=== PATIENT | female | born 1995 | race Caucasian/White ===

== ENCOUNTER 2019-02-03 16:31 | Outpatient (CLI) | payer OTHER ==
--- NOTE | 2019-02-03 17:42 | Ultrasound Report ---
Reason: UTERINE SIZE-DATE DISCREPANCY Procedure Date: 02/03/2019 Accession Number: [id number] / [id number] Procedure: US - OB F/U or Repeat CPT Code: Final Report FULL RESULT: EXAM: FOLLOW-UP OBSTETRICAL ULTRASOUND EXAM DATE: 02/03/2019 04:38 PM. CLINICAL HISTORY: UTERINE SIZE-DATE DISCREPANCY. COMPARISON: No priors are available. TECHNIQUE: Real-time sonographic evaluation of the fetus performed by the payroll accounting specialist. Multiple technical service representative static images were saved for review. DATING: Established EGA 35 weeks 5 days with VIDA 03/05/2019 based on LMP of 05/29/2018 per patient's report. EGA 35 weeks 5 days with VIDA 03/05/2019 based on physician stated date. EGA 37 weeks 4 days with VIDA 02/20/2019 based on the current ultrasound. GENERAL EVALUATION Cardenas . Cardiac activity: 151 bpm. movement: Visualized. Presentation: Cephalic. Placenta: Anterior position. Amniotic fluid: Normal. NATE 16 cm. MVP 4.9 cm. BIOMETRY Bi-Parietal Diameter (BPD): 8.9 cm, 36 weeks 1 day Head Circumference (HC): 34.5 cm, 39 weeks 2 days Abdominal Circumference (AC): 35 cm, 39 weeks 0 days Femur Length (FL): 6.9 cm, 35 weeks 4 days Estimated Weight: 3329 g, 95th percentile . IMPRESSION: 1. Single viable intrauterine with estimated weight 3329 g. Using previously established gestational age of 35 weeks 5 days, fetus at 95th percentile for weight. KANE
== END 2019-02-03 16:32 | disposition home or self-care (01) ==
LOC: DI 16:31
PROVIDERS: ATTEND Nurse Practitioner Obstetrics & Gynecology
DX: O26.843 Uterine size-date discrepancy, third trimester (principal); Z3A.35 35 weeks gestation of pregnancy
CPT/HCPCS: 76816

== ENCOUNTER 2019-02-07 08:00 | Outpatient (CLI) | payer OTHER | END 2019-02-07 23:59 | disposition home or self-care (01) | LOC: LAB.R 08:00 | PROVIDERS: ATTEND Nurse Practitioner Obstetrics & Gynecology | DX: Z36.85 Encounter for antenatal screening for Streptococcus B (principal) | CPT/HCPCS: 87491; 87591; 87661; 87797 ==

== ENCOUNTER 2019-02-28 06:33 | Inpatient (IN) | payer OTHER ==
[2019-02-28] MEDS ORDERED: SODIUM CHLORIDE FLUSH 0.9% 10 ML SYRINGE IVP PRN (06:40)
[2019-02-28] MEDS: miSOPROStoL 100 MCG TABLET BC SCH ×4 (08:20→23:32)
[2019-02-28 08:23] LABS: BASOPHILS % (AUTO) 0.3 %; EOSINOPHILS # (AUTO) 0.1 10^3/uL (0.0-0.7); HGB - HEMOGLOBIN 11.2 g/dL (12.0-16.0); LYMPHOCYTES # (AUTO) 2.7 10^3/uL (1.5-3.5); LYMPHOCYTES % (AUTO) 27.6 %; MEAN CORPUSCULAR HEMOGLOBIN 30.2 pg (27.0-31.0); MEAN CORPUSCULAR HGB CONC 33.6 g/dL (32.0-36.0); MEAN CORPUSCULAR VOLUME 89.8 fL (81.0-99.0); MEAN PLATELET VOLUME 10.1 fL (7.9-10.8); MONOCYTES # (AUTO) 0.6 10^3/uL (0.0-1.0); MONOCYTES % (AUTO) 6.6 %; NEUTROPHILS # (AUTO) 6.2 10^3/uL (1.5-6.6); NEUTROPHILS % (AUTO) 63.4 %; PLT - PLATELET COUNT 284 10^3/uL (130-450); RED BLOOD COUNT 3.71 10^6/uL (4.20-5.40); RED CELL DISTRIBUTION WIDTH 14.6 % (12.0-15.0); WHITE BLOOD COUNT 9.7 x10^3/uL (4.8-10.8)
--- NOTE | 2019-02-28 11:06 | HISTORY & PHYSICAL EXAMINATION ---
Admit History - Visit Reason Visit Reason: Other - : 1 Parity: 0 Premature: 0 Ectopic: 0 : 0 Care: positive: HEALTH SYSTEM Risk/History: positive: None Complications This : positive: None Smoking Status: Never smoker - Mother's Labs Mother's Blood Type: positive: A Mother's RH: positive: Negative GBS: positive: Group B Step Negative Rubella Status: positive: Immune Meds/Allgy - Allergies Allergies/Adverse Reactions: Allergies Allergy/AdvReac Type Severity Reaction Status Date / Time cefprozil [From Cefzil] Allergy Hives Verified 02/28/19 07:38 clarithromycin [From Biaxin] Allergy Hives Verified 02/28/19 07:38 neomycin Allergy Hives Verified 02/28/19 07:38 Review of Systems - Constitutional Constitutional: denies: Fatigue, Fever, Chills, Malaise - Eyes Eyes: denies: Blurred vision, Spots in vision, Dipolpia - Cardiovascular Cariovascular: denies: Irregular heart rate, Palpitations, Chest pain, Edema - Respiratory Respiratory: denies: SOB at rest - Gastrointestinal Gastrointestinal: denies: Abdominal pain, Constipation, Diarrhea, Nausea, Vomiting - Integumentary Integumentary: denies: Rash, Pruritis - Neurological Neurological: denies: Headache Physical - Abdominal Exam Uterine Resting Tone: positive: Soft - Monitoring Heart Rate Baseline: 150 Strip Review: positive: Category I - Presentation Presentation: positive: Vertex - Vaginal Exam Membranes: positive: Membranes intact - Speculum Exam Speculum Exam Performed: positive: No Plan for Labor - Plan For Labor I expect patient to be DC'd or transferred within 96 hours.: Yes Plan for Labor: HPI: Erica presents to [facility] for elective induction of labor at 39.2wks gestation by LMP c/w 10.0wk U/S secondary to EFW 95th%tile. She has been a patient of [facility] since 35.0wks gestation at which time she transferred her care from [facility] where she had received regular care through the duration of her . SVE deferred upon arrival secondary to absence of uterine contractions and recent SVE which revealed cervix was was closed/thick/high, posterior, vertex. She denies vaginal bleeding or leakage of fluid and reports +FM. She is here with her Moris today who is present and supportive at the bedside. She was placed in observation status on WHFBP for pre-induction cervical ripening. 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 Never smoker. No ETOH or IVDA Family Hx: Thyroid disorder - mother; IBS - mother labs: A neg; antibody negative - received rhogam 01/08/19 Rubella NON-immune Free T4 0.92; TSH 0.797 Hgb 10.7; Hct 32.2; PLT 388 Hep B neg; Hep C neg HIV non-reactive GC/CT neg RPR non-reactive Varicella immune Glucola 109 GBS neg Third trimester GC/CT negative Genetic testing - serum integrated screen - negative Ultrasounds: FAS 10/16/2018 WNL with the exception of poor visualization of spine in addition to concern for slightly bowed femur which is unclear if this may be due to positioning. Anterior placenta, no previa. NATE WNL. 3VC. 11/27/2018 f/u. Large for gestational age fetus measuring 92nd percentile. HC/AC ratio is normal. Normal femur and spine. 02/03/2019 growth and NATE -EFW 3329g, 95th %tile. NATE 16 Immunizations: TDAP 01/29/2019 Influenza 12/18/18 Rhogam 01/08/2019 Physical Exam: Normocephalic, atraumatic Heart RRR w/o M/G/R Lungs CTAB Abdomen gravid, soft, nontender EFW 3900g FHR baseline 150s, moderate varability, + accels, no decels Few, intermittent contractions via tocometry SVE deferred - last SVE 48hrs ago closed/thick/high Bilateral LE's no edema Assessment: 23yo @ 39.2wks gestation by LMP c/w 10.0wk U/S Suspected LGA fetus GBS neg Rh neg Rubella non-immune Plan: Observation status on WHFBP for pre-induction cervical ripening 50 mcg BC misoprostol q 4 hours for pre-induction cervical ripening Continuous monitoring Reviewed plan of care with attending physician Reviewed plan of care with pt, partner, and labor RN at the bedside who are all in agreement and deny questions or concerns at this time. Advised ambulation and frequent position changes. Epidural per maternal request. Anticipate
[2019-03-01] MEDS: miSOPROStoL 100 MCG TABLET BC SCH (03:27)
[2019-03-01] MEDS: LACTATED RINGERS 1,000 ML IV SCH ×4 (07:49→23:32)
[2019-03-01] MEDS: SODIUM CHLORIDE FLUSH 0.9% 10 ML SYRINGE IVP SCH ×4 (07:49→19:07)
[2019-03-01] MEDS ORDERED: ROPIVACAINE 0.2% PF 20ML VIAL ONE ×2 (08:25→20:23)
[2019-03-01] MEDS ORDERED: ROPIVACAINE 0.2% 200 MG/100 ML BAG EP ONE (08:25)
--- NOTE | 2019-03-01 08:28 | PROVIDER PROGRESS NOTE ---
Labor Progress Note - Uterine Monitoring Uterine Monitoring Mode: positive: External toco Contraction Frequency (min/apart): 3-6 Contraction Intensity: positive: Moderate Uterine Resting Tone: positive: Soft - Monitoring Monitor Mode: positive: External ultrasound Heart Rate Baseline: 135 Heart Rate Variability: positive: Moderate (6-25 bmp) Accelerations: positive: Present, 15x15 Decelerations: positive: None Strip Review: positive: Category I - Vaginal Exam Dilation (in cm): 2 Effacement (%): 70 Station: -1 Cervical Position: Anterior - Labor Progress Note Labor Progress Note/Additional Text: S: Sitting up on exercise ball at the bedside breathing through contractions. She reports the pain did not allow her to get any sleep throughout the night and they have continued to get worse. She is currently rating her pain 8/10 between contractions and 10/10 during contractions. She is able to talk through the contractions when asked a question. She is requesting an epidural and states she is hoping if she just relaxes she will start to allow her body to dilate. Her is present and supportive at the bedside. O: FHR baseline 140, moderate variability, + accels, no decels. Contractions palpate moderate every 3-6 minutes with soft resting tone. No abdominal/uterine tenderness upon palpation. Last SVE 0700 2/70/-1, anterior, vertex. Intact membranes. S/p 5 doses of 50mcg BC misoprostol for effective cervical ripening Cornell score 7=favorable A: 23yo @ 39.3wks gestation by LMP c/w 10wk U/S GBS neg Elective IOL secondary to suspected macrosomia P: Continuous monitoring Anesthesia notified for placement of epidural for pain management D/c misoprostol Initiate pitocin with titration per protocol when pt comfortable with epidural Consider AROM with next SVE Reviewed plan of care with pt, , and labor RN at the bedside who are all in agreement with above plan and deny further questions or concerns at this time. Anticipate spontaneous vaginal delivery.
[2019-03-01] MEDS ORDERED: ePHEDrine 50 MG/ML VIAL IVP PRN (09:18)
[2019-03-01] MEDS ORDERED: diphenhydrAMINE INJ 50 MG/ML VIAL IVP PRN (09:18)
[2019-03-01] MEDS ORDERED: ROPIVACAINE 0.2% 200 MG/100 ML BAG EP PRN (09:18)
[2019-03-01] MEDS ORDERED: NALOXONE 0.4 MG/ML VIAL IVP PRN (09:18)
[2019-03-01] MEDS ORDERED: LACTATED RINGERS 500 ML IV ONE (09:18)
[2019-03-01] MEDS ORDERED: NALBUPHINE 10 MG/ML AMP IVP PRN (09:18)
[2019-03-01] MEDS ORDERED: METOCLOPRAMIDE 10 MG/2 ML VIAL IVP PRN (09:18)
--- NOTE | 2019-03-01 09:20 | ANESTHESIA ---
Pre-Anesthesia VS, & Labs - Diagnosis Term labor, IUP - Procedure Labor epidural Height 5 ft Weight (kg) 89.358 kg - NPO Last Fluid Intake: t/o noc Last Food Intake: t/o noc - Is Patient ?: Yes - Lab Results Current Lab Results: Laboratory Tests 02/28/19 08:10: WBC 9.7, RBC 3.71 L, Hgb 11.2 L, Hct 33.3 L, MCV 89.8, MCH 30.2, MCHC 33.6, RDW 14.6, Plt Count 284, MPV 10.1, Neut # (Auto) 6.2, Lymph # (Auto) 2.7, [place] # (Auto) 0.6, Eos # (Auto) 0.1, Baso # (Auto) 0.0, Absolute Nucleated RBC 0.00, Nucleated RBC % 0.0 Lab results reviewed: Yes Fish Bones: 02/28/19 08:10 Home Medications and Allergies Active Medications Lactated Ringer's (Lr) 1,000 mls @ 100 mls/hr IV .Q10H IRENE Last Admin: 03/01/19 07:49 Dose: 100 mls/hr OXYTOCIN/DEXTROSE 5 % (Pitocin/Dextrose 5%) 30 unit in 500 mls @ 1 mls/hr IV TITR IRENE; Protocol Sodium Chloride (Normal Saline Flush 0.9%) 10 ml IVP 0100,0900,1700 [facility] Last Admin: 03/01/19 07:49 Dose: 10 ml Sodium Chloride (Normal Saline Flush 0.9%) 10 ml IVP PRN PRN PRN Reason: NEEDED PER PROVIDER ORDERS Allergies/Adverse Reactions: Allergies Allergy/AdvReac Type Severity Reaction Status Date / Time cefprozil [From Cefzil] Allergy Hives Verified 02/28/19 07:38 clarithromycin [From Biaxin] Allergy Hives Verified 02/28/19 07:38 neomycin Allergy Hives Verified 02/28/19 07:38 Anes History & Medical History - Anesthetic History Anesthesia Complications: reports: No previous complications Family history of Anesthesia Complications: Denies Family history of Malignant Hyperthermia: Denies - Medical History Smoking Status: Never smoker - Surgical History Other Past Surgical History: [place] teeth extraction - Obstetrical History : 1 Parity: 0 Events: positive: None Complications: positive: None Exam General: Alert, Oriented x3, Cooperative Dental: WNL Neck Mobility: Normal Mallampati classification: II Thyromental Distance: 4-6 cm Respiratory: No respiratory distress Cardiovascular: Regular rate Mental/Cognitive Status: Alert/Oriented X3, Normal for patient Cognitive Status: Within normal limits Plan Anesthesia Type: Epidural Consent for Procedure(s) Verified and Reviewed: Yes Code Status: Attempt Resuscitation ASA classification: 2-Mild systemic disease Is this case an emergency?: No
[2019-03-01] MEDS: OXYTOCIN/DEXTROSE 5 % 30 UNIT/500 ML BAG IV SCH (10:52)
--- NOTE | 2019-03-01 14:51 | PROVIDER PROGRESS NOTE ---
Labor Progress Note - Uterine Monitoring Uterine Monitoring Mode: positive: External toco Contraction Frequency (min/apart): 2-5 Contraction Intensity: positive: Moderate to strong Uterine Resting Tone: positive: Soft - Monitoring Monitor Mode: positive: External ultrasound Heart Rate Baseline: 135 Heart Rate Variability: positive: Moderate (6-25 bmp) Accelerations: positive: Present, 15x15 Decelerations: positive: None Strip Review: positive: Category I - Vaginal Exam Dilation (in cm): 6 Effacement (%): 100 Station: 1 Cervical Position: Anterior - Labor Progress Note Labor Progress Note/Additional Text: S: Laying comfortable in bed on left side upon my arrival. She states she was able to get a nap in and is feeling much more rested. Comfortable with her epidural. Her mood is good and her is supportive at the bedside. O: FHR baseline 135, moderate variability, + accels, no decels. Brief periods of minimal variability - overall reassuring. Contractions palpate moderate to strong every 2-5 minutes with soft resting tone. SVE 6-7/100/+1, anterior, vertex Pitocin currently infusing at 4mU/mL A: 23yo @ 39.3wks gestation by 10wk U/S c/w LMP dating FHR Category I Active labor SROM x 6 hours P: Continuous monitoring Continue pitocin with titration per protocol Encouraged position changes in bed with peanut ball Anticipate
[2019-03-01] MEDS ORDERED: fentaNYL 100 MCG/2 ML VIAL ONE ×2 (15:41→20:22)
--- NOTE | 2019-03-01 15:59 | CONSULTATION NOTE ---
Consultation Report: Call to OB for new midline pelvic pain that is intense with contractions. Sensory level appreciated at T-12. Epidural bolus of 8cc 0.2% Ropi with 100mcg Fentanyl given in 2 divided doses. VSS. Pt states pain is completely gone after 5 mins. Will continue to follow and evaluate.
[2019-03-01] MEDS: ONDANSETRON 4 MG/2 ML VIAL IVP PRN (18:07)
--- NOTE | 2019-03-01 18:27 | CONSULTATION NOTE ---
Consultation Report: Call to room for new pain, intense with contractions, now at low back and pelvis R>L. Sensory level assessed to be at T12. Pt lying on R side. Repositioned to back with FRANNY. Epidural bolused with 10cc 0.2% Ropi in 2 divided 5cc doses, 2 minutes apart. VSS. Pt stated pain had resolved after 5 minutes and was back to laughing and talking with family. Epidural rate increased to 14cc/hr. Will continue to follow and evaluate.
--- NOTE | 2019-03-01 20:43 | CONSULTATION NOTE ---
Consultation Report: Call to OB for air in epidural line. Cath disconnected from tubing and air cleared. Sensory level assessed at T-12 and patient continues to have new sharp pain every 3-5 hours post bolus, including now. 8cc 0.2% Ropi with 100mcg Fentanyl bolused via epidural. Sensory to T8 and contraction pain resolved. VSS.
[2019-03-01] MEDS ORDERED: METHYLERGONOVINE 0.2 MG/ML AMP ONE (23:23)
[2019-03-01] MEDS ORDERED: miSOPROStoL 200 MCG TABLET ONE (23:25)
[2019-03-01] MEDS ORDERED: TRANEXAMIC ACID 1,000 MG/10 ML VIAL ONE (23:43)
[2019-03-02] MEDS: ONDANSETRON 4 MG/2 ML VIAL IVP PRN (00:03)
--- NOTE | 2019-03-02 00:20 | PROCEDURE REPORT ---
Hospitalist Procedure Note - Procedure Note Procedure Note: OB MD I was asked to stand by for delivery due to LGA fetus and pushing for 2h. By the time I arrived the baby had been delivered. Placenta was delivering when I arrived. CNM called for hemorrhage meds and so I entered room. By that time, bleeding was not brisk but was ongoing. Continuous fundal massage and pitocin bolus was initiated by CNM prior to my arrival. Both were continued. Methergine given IM. Bladder emptied. US revealed empty uterus 4cm below the umbilicus. Pt's uterine bleeding slowed to normal. Pt with a laceration that extended to the anus. CNM did rectal exam and noted good tone. She started vaginal sulcal repair. After this, bleeding slowed, and able to see disrupted perineum more clearly. I assisted with the final closure. VÍCTOR revealed good 360 degree tone surrounding my finger. Examination revealed the external anal sphinctor muscle exposed with capsule and muscle intact. Pt's laceration involved the perineal tissue above and below but not the muscle itself. Laceration extended to involve a bit of the anus but did not extend into the rectum. Laceration repaired to restore normal anatomy. Pt had some ongoing oozing from the laceration that was more brisk than usual. 1g of TXA called for and given. Fundus continued to be very firm and below the umbilicus. Quantitative blood loss (plus a small amount of amniotic fluid) was 1060cc. Pt tolerated everything well, is cuddling her baby. Asked pt to let us know if her bleeding is ever more than a heavy period.
--- NOTE | 2019-03-02 00:33 | DELIVERY NOTE ---
Delivery Note - Labor Labor: positive: Induced by oxytocin - Infant Delivery Method Delivery Method: positive: Spontaneous vaginal delivery - Cervical Ripening Method Cervical Ripening Method: positive: Misoprostil - Presentation Presentation: positive: Vertex, CRISS - right occiput anterior - Nuchal Cord Nuchal Cord: positive: None - Amniotic Fluid Description Amniotic Fluid Description: positive: Clear - Episiotomy Type Episiotomy Type: positive: None - Laceration Laceration: positive: 2nd degree, Perineal, Vaginal - Suture Suture Type: positive: Vicryl Suture Size: positive: 2-0, 3-0, 4-0 - Delivery Outcome Delivery Outcome: positive: Livebirth - : positive: Placed in direct skin contact with mother, Bulb syringe, Stimulated, Warmed, [place] used, Warmer used [place] sex: positive: Male - Cord Cord: positive: 3 vessels - Placenta Placenta: positive: Intact, Spontaneous - Estimated Blood Loss Estimated Blood Loss (in cc): 867 - Post Delivery Events Post Delivery Events: positive: Hemorrhage, Shoulder dystocia - Delivery Comments (Free Text/Narrative) Delivery Comments (Free Text/Narrative): Labor: This 23yo @ 39.3 wks gestation by LMP c/w 10.0wk U/S presented on 02/28/2019 @ 0630 for induction of labor secondary to suspected macrosomia based on EFW consistently measuring >90th%tile. She was given 5 total doses of 50mcg BC misoprostol for effective cervical ripening at which time pitocin was initiated and titrated per protocol. Epidural placed per maternal request. AROM occurred at approximately 0830 on 03/01/2019 and was noted to be a moderate amount of clear fluid. FHR demonstrated Category I pattern throughout labor. She progressed to c/c/+1 at 2015 with onset of active pushing at 2054. Due to slow decent and anticipated dystocia, attending physician was notified to be present at the bedside. : Delivery of head occurred at 2315 at which time pt was placed in May position and suprapubic pressure was applied over anterior shoulder. Delivery of anterior shoulder occurred 40 seconds after infant head for a total of 40 second shoulder dystocia. delivered in CRISS position. No nuchal cord. The was placed on maternal abdomen, stimulated and dried. Umbilical cord was doubly clamped by CNM and cut by FOB. Infant was brought to infant warmer for additional support/resuscitation. Apgars were 6/9 at 1 and 5 min respectively. Pitocin administered via IV for hemostasis. Cord blood was obtained. 3VC. Placenta delivered spontaneously and intact at 2320 and was followed by brisk vaginal bleeding. Vigorous fundal massage was performed and following initial increase in blood loss the uterine fundus was noted to be firm although very deep in the pelvis and subsequently difficult to asses. Bladder was emptied. At this time, attending physician present at the bedside and performed a limited bedside transabdmoinal U/S to reveal empty uterus 4cm below umbilicus. Methergine administered IM for additional hemostasis and was noted to be adequate hemostasis. 1g of Tranexamic acid administered via IV. The perineum, vagina, cervix and rectum were inspected and found to have 2nd degree laceration. with slowed rate of bleeding the affected perineum was more easily assessed and was noted to have a small amount of anus involved without extension into the rectum and following initial vaginal sulcus repair, the attending physician was asked to complete the repair. Quantitative blood loss in addition to a small amount of amniotic fluid was 867cc. Following repair uterine fundus was firm and there is no excessive bleeding. Tissues well approximated. initiated. Family bonding well. Both mother and baby were left in stable condition.
[2019-03-02] MEDS ORDERED: HYDROCORTISONE 1% CREAM 28 GM TUBE PR PRN (00:44)
[2019-03-02] MEDS ORDERED: WITCH HAZEL/GLYCERIN 1 PAD TOP PRN (00:44)
[2019-03-02] MEDS ORDERED: METHYLERGONOVINE 0.2 MG/ML AMP IM ONE (00:45)
[2019-03-02] MEDS ORDERED: OXYTOCIN/DEXTROSE 5 % 30 UNIT/500 ML BAG IV PRN (00:45)
[2019-03-02] MEDS ORDERED: TRANEXAMIC ACID 1,000 MG in SODIUM CHLORIDE 0.9% 100ML 100 ML IV STA (00:46)
[2019-03-02] MEDS: IBUPROFEN 800 MG TABLET PO SCH ×4 (01:30→20:28)
[2019-03-02] MEDS: HYDROcod/ACETAM 5/325 MG TABLET PO PRN ×5 (03:46→20:27)
[2019-03-02] MEDS: SODIUM CHLORIDE FLUSH 0.9% 10 ML SYRINGE IVP SCH ×3 (03:54→17:16)
[2019-03-02] MEDS: ACETAMINOPHEN 500 MG TABLET PO SCH ×3 (03:54→17:16)
[2019-03-02] MEDS: DOCUSATE SODIUM 100 MG CAPSULE PO SCH ×2 (08:12→20:27)
--- NOTE | 2019-03-02 12:12 | PROVIDER PROGRESS NOTE ---
Subjective - Subjective Subjective: S: Bonding well with baby. without difficulty. Pain well controlled with ibuprofen and tylenol and pt has taken addition of [place] 5/325 x 2. She feels most uncomfortable when she gets up to use the bathroom. She is urinating without difficulty and is using her [place]. Her bleeding has decreased significantly and is normal. She states she was able to get approxim ately 4 hours of sleep in last night and is feeling tired but overall doing well. She denies headache, dizziness, or feeling faint. Her is supportive at the bedside. O: BP 126/82, HR 96, RR 18, T 36.6 Heart RRR w/o M/G/R, lungs CTAB, abdomen soft and nontender with fundus firm at U-2, light lochia rubra, perineum intact and repair with mild edema, bilateral LE's trace pedal edema. A: 23yo -->P1 PPD#1 s/p TSVD viable male s/p 867mL pp blood loss- repeat CBC pending; pt asyptomatic 2nd degree perineal laceration - intact P: Continue routine pp care and medications. Evaluate for discharge home tomorrow. Objective - Vital Signs/Intake & Output Vital Signs: Vital Signs x48h Temp Pulse Resp BP Pulse Ox 03/02/19 08:37 36.6 C 96 18 126/82 H 99 03/02/19 05:21 36.7 C 88 16 125/61 Intake & Output: Intake & Output 02/27/19 02/28/19 03/01/19 03/02/19 23:59 23:59 23:59 23:59 Intake Total 2706.350 308.65 Output Total 1725 160 Balance 981.350 148.65 - Lab Results Fish Bones: 02/28/19 08:10
[2019-03-02] MEDS ORDERED: MEASLES,MUMPS & RUBELLA VACC 0.5 ML VIAL SUBQ ONE (12:13)
[2019-03-02 12:19] LABS: BASOPHILS # (AUTO) 0.1 10^3/uL (0.0-0.1); BASOPHILS % (AUTO) 0.4 %; EOSINOPHILS # (AUTO) 0.1 10^3/uL (0.0-0.7); EOSINOPHILS % (AUTO) 0.8 %; HGB - HEMOGLOBIN 9.1 g/dL (12.0-16.0); LYMPHOCYTES # (AUTO) 3.5 10^3/uL (1.5-3.5); LYMPHOCYTES % (AUTO) 21.3 %; MEAN CORPUSCULAR HEMOGLOBIN 30.7 pg (27.0-31.0); MEAN CORPUSCULAR HGB CONC 33.8 g/dL (32.0-36.0); MEAN CORPUSCULAR VOLUME 90.9 fL (81.0-99.0); MEAN PLATELET VOLUME 9.9 fL (7.9-10.8); MONOCYTES # (AUTO) 1.3 10^3/uL (0.0-1.0); MONOCYTES % (AUTO) 8.2 %; NEUTROPHILS # (AUTO) 11.2 10^3/uL (1.5-6.6); NEUTROPHILS % (AUTO) 68.3 %; PLT - PLATELET COUNT 219 10^3/uL (130-450); RED BLOOD COUNT 2.96 10^6/uL (4.20-5.40); RED CELL DISTRIBUTION WIDTH 14.5 % (12.0-15.0); WHITE BLOOD COUNT 16.3 x10^3/uL (4.8-10.8)
[2019-03-02] MEDS: OXYTOCIN/DEXTROSE 5 % 30 UNIT/500 ML BAG IV SCH (13:57)
[2019-03-02] MEDS: LACTATED RINGERS 1,000 ML IV SCH (13:57)
[2019-03-02] MEDS ORDERED: RHO(D) IMMUNE GLOBULIN 300 MCG SYRINGE IM ONE (16:21)
[2019-03-03] MEDS: IBUPROFEN 800 MG TABLET PO SCH ×3 (02:50→14:55)
[2019-03-03] MEDS: HYDROcod/ACETAM 5/325 MG TABLET PO PRN ×2 (02:51→08:34)
[2019-03-03] MEDS: DOCUSATE SODIUM 100 MG CAPSULE PO SCH (08:34)
--- NOTE | 2019-03-03 11:44 | DISCHARGE SUMMARY ---
Physician: Nisa Byrne MD DATE OF ADMISSION: 03/01/2019 DATE OF DISCHARGE: 03/03/2019 ADMITTING DIAGNOSES 1. Intrauterine at 39 weeks. 2. Estimated weight in the 95th percentile. 3. Elective induction of labor. DISCHARGE DIAGNOSES 1. Status post spontaneous vaginal delivery at term. 2. Dystocia, 40 seconds. 3. hemorrhage. OPERATIONS AND PROCEDURES: 03/01/2019 spontaneous vaginal delivery of a liveborn male. HOSPITAL COURSE: Patient was admitted for an elective induction of labor due to her estimated weight in the 95th percentile. Her dating criteria were good. She was induced with a misoprostol followed by Pitocin. She received an epidural and was AROM'ed for clear fluid. She pushed for 2 hours to deliver OA over an intact perineum. She did have a shoulder dystocia lasting for 40 seconds, and it resolved with May and suprapubic pressure. Apgars were 6 at one minute and 9 at five minutes. Patient then had a mild hemorrhage that resolved with fundal massage, Methergine and tranexamic acid. She had a second-degree perineal laceration that extended to the anal mucosa, but not the rectum. Patient's course was remarkable for a hematocrit of 26. She was tolerating this well, ambulating, and getting around, taking care of the baby without difficulty. She was eating and urinating well. Her bleeding was like a heavy period. She did have some issues with her latch. PHYSICAL EXAMINATION VITAL SIGNS: She was afebrile with normal vital signs. GENERAL: Alert, pleasant, in no apparent distress. ABDOMEN: Soft, nontender, nondistended. FUNDUS: Firm, nontender, and at the umbilicus. LOWER EXTREMITIES: With 1+ edema bilateral to the zaidi. No tenderness or erythema or cord. DISCHARGE DISPOSITION: Home. CONDITION: Good. MEDICATIONS 1. Ibuprofen p.r.n. pain. 2. Colace p.r.n. to soften stool. 3. Iron daily for a month. DISCHARGE INSTRUCTIONS: Follow up in 1 week for a check, sooner if is difficult. Patient will remain here throughout the day for ongoing support. If she is still not able to latch well, then she will be [facility] and status while her baby remains inpatient for breast feeding support. TD: 03/03/2019 11:18 MTDLeonie
[2019-03-03] MEDS: ACETAMINOPHEN 500 MG TABLET PO SCH (14:55)
[2019-03-03 17:11] VITALS: BP 124/69
--- NOTE | 2019-03-03 17:26 | Discharge Plan ---
Discharge Plan Problem Reviewed?: Yes Disposition: Home, Self Care Condition: Good Diet: Regular Activity Restrictions: nothing in the vagina for 6w Shower Restrictions: No Driving Restrictions: No No Smoking: If you smoke, Please STOP! Call for help. Follow-up with: Kristen Castillo CNM, ARNP [Provider Admit Priv/Credential] - 1 Week
--- NOTE | 2019-03-03 20:24 | Labor Flowsheet ---
Labor Flowsheet Datetime Report Generated by CPN: 03/03/2019 20:24 Datetime: 03/03/2019 16:29 VITAL SIGNS NBP Sys/Barbara/Mean (mmHg): 138 : 66 : 82 Pulse: 96 LaborFlag: Labor Datetime: 03/02/2019 08:38 SpO2 (%): 99 Datetime: 03/02/2019 00:06 Epidural Procedure Other: Cath Removed; Cath Intact Datetime: 03/02/2019 00:03 Antiemetics/Antacids: Zofran (mg) @ 4 Datetime: 03/01/2019 23:33 Vaginal Exam Comments: repair Datetime: 03/01/2019 23:32 Medication Comments: pitocin decreased to 125ml/hr and LR TKO per Dr. Byrne verbal request Datetime: 03/01/2019 23:24 Communication Comments: in and out cath for 50ml Datetime: 03/01/2019 23:14 UTERINE ACTIVITY Monitor Mode: External Frequency (min): 2-3 Quality: Strong Duration (sec): 40-60 Pattern: Normal: <= 5 Contractions in 10 Minutes Resting Tone (Palpate): Relaxed ASSESSMENT A Monitor Mode: External US FHR Baseline Changes: No Baseline Change Variability: Moderate 6-25 bpm Accelerations: 10X10 Decelerations: Late Actions for Decelerations: Sterile Vaginal Exam; Provider Notified Category: Category II Comments: decels with pushing Datetime: 03/01/2019 22:59 FHR Baseline Rate : 150 Patient Care Comments: in and out cath no urine due to head decent Datetime: 03/01/2019 22:45 Oxygen Method: Room Air Datetime: 03/01/2019 22:41 PAIN Pain Scale: 10 Pain Presence: Constant Pain Type: Burning; Cramping; Contraction; Pressure Pain Location: Perineum Pain Relief Measures: Comfort Measures Pain Assessment Comments: pt. pushing Comfort Measures: Breathing/Relaxation; Family Support Datetime: 03/01/2019 22:40 Temperature (C): 36.9 Vital Sign Comments: oral temp Datetime: 03/01/2019 22:30 Anesthesia Level Check: T10- Umbilicus Datetime: 03/01/2019 21:59 Pitocin Checklist: At Least 1 Acceleration of 15 bpm x 15 Seconds in 30 Minutes or Adequate Variabi lity; No More than 1 Late Deceleration Occurred in Past 30 Minutes; No More than 2 Variable Decelerat ions > 60 Seconds in Duration and decreasing >60 bpm in 30 minutes; No More than 5 Uterine Contractio ns in 10 Minutes for any 20 Minute Interval; Uterus Palpates Soft between Contractions MEDICATIONS Pitocin (milliunits): Increased to @ 6 Datetime: 03/01/2019 21:39 Monitor Interventions for UA: [place] Adjusted Datetime: 03/01/2019 20:55 STAGE 2 Pushing: Urge to Push Pushing Position: Pushing with Contractions Pushing Progress: Molding Noted Preparation for Delivery: Setup for Delivery Stage 2 Comments: stool at bedside Datetime: 03/01/2019 20:53 COMMUNICATION Communication: Provider at Bedside Datetime: 03/01/2019 20:45 Pain Goal: 2 Datetime: 03/01/2019 20:16 VAGINAL EXAM Dilatation (cm): 10.0 Effacement (%): 100 Station: 1 Exam by: Po Jordan RN Vaginal Bleeding: None Cervix, Consistency: Soft Cervix, Position: Midposition Datetime: 03/01/2019 20:08 Anesthesia Comments: anesthesia at bedside Datetime: 03/01/2019 20:01 Contraction Comments: pt. c/o ctx that arent going away Datetime: 03/01/2019 19:35 Patient Position/Activity: Left Extreme Datetime: 03/01/2019 19:24 Stage of : Labor Pain Coping: Talking Through Contractions MATERNAL ASSESSMENT Level of Consciousness: Fully Conscious DTR's/Clonus: DTRs 1+ Headache: Denies Breath Sounds, Left: Clear and Equal Breath Sounds, Right: Clear and Equal Nausea/Vomiting: Denies RUQ Epigastric Pain: Denies Maternal Comments: epidural placed Plan of Care: Plan of Care Discussed; Vaginal Delivery Datetime: 03/01/2019 19:00 Respirations: 18 Datetime: 03/01/2019 17:41 Provider Notified (Name): C Christy, UPSTREAM BIOMANUFACTURING TECHNICIAN Datetime: 03/01/2019 16:57 Monitor Interventions for FHR: Ultrasound Adjusted Datetime: 03/01/2019 15:42 Epidural Procedure: Loading Dose Datetime: 03/01/2019 13:04 PATIENT CARE IV/Blood Work: New IV Bag Hung; IV Bag Number @ 2 Datetime: 03/01/2019 10:50 TEACHING Instructional Method: Verbal Teaching Comments: Patient educated about use of Pitocin Datetime: 03/01/2019 10:35 I/O Interventions: Menjivar Cath Inserted Datetime: 03/01/2019 08:49 Membrane Status: Ruptured Membranes Rupture Method: Spontaneous Amniotic Fluid Color: Clear Amniotic Fluid Amount: Scant Amniotic Fluid Odor: None Datetime: 03/01/2019 08:38 PROCEDURE TIME OUT Procedure Verify: Correct Patient Identity; Correct Side and Site are Marked; Accurate Procedure Co nsent Form; Agreement on Procedure to be Done; Correct Patient Position ANESTHESIA Anesthesia Plans: Epidural Epidural Positioning: Sitting Datetime: 03/01/2019 03:30 Cervical Ripening Agents: Cytotec @ (Annotations: Data stored by N on behalf of user) Datetime: 02/28/2019 19:57 Membranes Ruptured Date/Time: 03/01/2019 08:49 Datetime: 02/28/2019 12:18 Notification Reason: Uterine Activity (Annotations: patient kavin every 1-3 minutes and ratin g discomfort 04/28. Plan is to hold next dose of miso for 1 hour and then reassess) Datetime: 02/28/2019 06:51 Unit Routine: [place] to Room; Call Nuñez
== END 2019-03-03 18:40 | disposition home or self-care (01) | DRG 806 ==
LOC: WFO 06:33 → FBP 06:38 → WFO 06:39 → FBP 06:40 → OBSVTOIN 03-01 08:40
PROVIDERS: ADMIT Nurse Practitioner Obstetrics & Gynecology; ATTEND Obstetrics & Gynecology
PROC: 10E0XZZ Delivery of Products of Conception, External Approach (ICD-10-PCS; principal; 2019-03-01)
PROC: 0KQM0ZZ Repair Perineum Muscle, Open Approach (ICD-10-PCS; 2019-03-01)
PROC: 10907ZC Drainage of Amniotic Fluid, Therapeutic from Products of Conception, Via Natural or Artificial Opening (ICD-10-PCS; 2019-03-01)
PROC: 3E033VJ Introduction of Other Hormone into Peripheral Vein, Percutaneous Approach (ICD-10-PCS; 2019-03-01)
DX: O36.63X0 Maternal care for excessive fetal growth, third trimester, not applicable or unspecified (principal); O72.1 Other immediate postpartum hemorrhage; Z37.0 Single live birth; Z3A.39 39 weeks gestation of pregnancy; O70.1 Second degree perineal laceration during delivery; O66.0 Obstructed labor due to shoulder dystocia; O26.893 Other specified pregnancy related conditions, third trimester; Z67.11 Type A blood, Rh negative; Z23 Encounter for immunization
CPT/HCPCS: 36415; 83033; 85025; 86900; 86901; A9270; G0378; J2795; J7120

== ENCOUNTER 2019-03-04 14:37 | Outpatient (CLI) | payer OTHER ==
[2019-03-04 16:19] LABS: T4 (THYROXINE) 10.1 ug/dL (6.09-12.23)
[2019-03-04 16:23] LABS: THYROID STIMULATING HORMONE 2.33 uIU/mL (0.34-5.60)
[2019-03-04 16:25] LABS: FREE T4 (FREE THYROXINE) 0.84 ng/dL (0.58-1.64)
== END 2019-03-04 14:38 | disposition home or self-care (01) ==
LOC: LAB 14:37
PROVIDERS: ATTEND Obstetrics & Gynecology
DX: F41.9 Anxiety disorder, unspecified (principal)
CPT/HCPCS: 36415; 84436; 84439; 84443

== ENCOUNTER 2019-03-08 16:24 | Emergency (ER) | payer OTHER ==
--- NOTE | 2019-03-08 16:36 | ED Physician Documentation ---
PD HPI FEMALE - Stated complaint Stated Complaint: INCREASED BLEEDING - 7DAYS POST - Chief complaint Chief Complaint: General - History obtained from History obtained from: Patient - History of Present Illness Timing - onset: How many days ago (3) Timing - duration: Days (3) Timing - details: Still present Associated symptoms: Vaginal pain, Vaginal bleeding. No: Fever, Vaginal discharge Contributing factors: Other (7 days from a vaginal delivery with a perineal tear that was repaired). 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 She said the bleeding that she is having is continued bright red and has not changed to the lochia that she would expect. It is also gotten increasingly more over the past 3 days. She does have a headache and pain in the perineal region. No abdominal pain and no purulent drainage. She is not running a fever. She denies feeling dizzy. She is breast-feeding and said the baby is doing well.She is scheduled for her follow-up appointment with Dr. Byrne this coming Sunday but she phoned her this evening and was told to come to the hospital where Dr. Byrne would meet her in triage. Review of Systems Constitutional: denies: Fever GI: denies: Abdominal Pain : reports: Other ( 7 days). denies: Dysuria Neurologic: reports: Headache. denies: Near syncope, Syncope PD PAST MEDICAL HISTORY - Present Medications Home Medications: Ambulatory Orders Medication Instructions Recorded Confirmed Docusate Sodium 100 mg PO BID 03/08/19 03/08/19 Ferrous Sulfate 325 mg PO DAILY 03/08/19 03/08/19 Hydroxyzine Pamoate [Vistaril] 50 mg PO Q6HR PRN 03/08/19 03/08/19 Ibuprofen [Motrin] 600 mg PO Q6H PRN 03/08/19 03/08/19 - Allergies Allergies/Adverse Reactions: Allergies Allergy/AdvReac Type Severity Reaction Status Date / Time cefprozil [From Cefzil] Allergy Hives Verified 03/08/19 16:26 clarithromycin [From Biaxin] Allergy Hives Verified 03/08/19 16:26 veronica Allergy Rash Verified 03/08/19 16:26 neomycin Allergy Hives Verified 03/08/19 16:26 - Social History Smoking Status: Never smoker PD ED PE NORMAL - Vitals Vital signs reviewed: Yes - General General: Alert and oriented X 3, No acute distress, Well developed/nourished - HEENT HEENT: Atraumatic, PERRL - Respiratory Respiratory: No respiratory distress - Female Female : Deferred (Dr. Byrne came to the emergency department and examined the patient) Results - Vitals Vitals: Vital Signs - 24 hr 03/08/19 03/08/19 16:26 18:45 Temperature 36.8 C 36.6 C Heart Rate 94 87 Respiratory 20 18 Rate Blood Pressure 133/91 H 129/82 H O2 Saturation 97 97 Oxygen O2 Source Room air - Labs Labs: Laboratory Tests 03/08/19 16:50 WBC 12.1 H RBC 3.00 L Hgb 8.9 L Hct 27.4 L MCV 91.3 MCH 29.7 MCHC 32.5 RDW 14.6 Plt Count 442 MPV 8.8 Neut # (Auto) 7.0 H Lymph # (Auto) 3.6 H [place] # (Auto) 0.9 Eos # (Auto) 0.3 Baso # (Auto) 0.1 Absolute Nucleated RBC 0.00 Nucleated RBC % 0.0 PD MEDICAL DECISION MAKING - ED course Complexity details: d/w storage management consultant ED course: The patient's hemoglobin 6 days ago was 9.1. Repeat CBC has been ordered and I spoke with Dr. Byrne before evaluating the patient's perineal region and she would prefer to come and exam the patient herself. The patient's hemoglobin is stable at 8.9. Apparently Dr. Byrne would like the patient at OB triage to work and I discharged her from here to be taken there for evaluation. 1752: Prior to the D/C, the patient was redirected to her room for Dr Byrne to evaluate her here. Departure - Departure Disposition: Home, Self Care Clinical Impression: Vaginal bleeding Condition: Good Comments: Please follow-up in [address] Byrne. Perform the sitz bath as discussed. If you are having significant bleeding, passing out, signs of infection, or other concerning symptoms, return to the emergency department. Discharge Date/Time: 03/08/19 18:47
[2019-03-08 17:02] LABS: BASOPHILS # (AUTO) 0.1 10^3/uL (0.0-0.1); BASOPHILS % (AUTO) 0.5 %; EOSINOPHILS # (AUTO) 0.3 10^3/uL (0.0-0.7); EOSINOPHILS % (AUTO) 2.5 %; HGB - HEMOGLOBIN 8.9 g/dL (12.0-16.0); LYMPHOCYTES # (AUTO) 3.6 10^3/uL (1.5-3.5); LYMPHOCYTES % (AUTO) 29.9 %; MEAN CORPUSCULAR HEMOGLOBIN 29.7 pg (27.0-31.0); MEAN CORPUSCULAR HGB CONC 32.5 g/dL (32.0-36.0); MEAN CORPUSCULAR VOLUME 91.3 fL (81.0-99.0); MEAN PLATELET VOLUME 8.8 fL (7.9-10.8); MONOCYTES # (AUTO) 0.9 10^3/uL (0.0-1.0); MONOCYTES % (AUTO) 7.2 %; NEUTROPHILS % (AUTO) 57.3 %; PLT - PLATELET COUNT 442 10^3/uL (130-450); RED CELL DISTRIBUTION WIDTH 14.6 % (12.0-15.0); WHITE BLOOD COUNT 12.1 x10^3/uL (4.8-10.8)
[2019-03-08] MEDS ORDERED: fentaNYL 100 MCG/2 ML VIAL IVP STA ×2 (17:47→18:03)
[2019-03-08] MEDS ORDERED: BUFFERED LIDOCAINE 10 ML SYRINGE SUBQ STA ×2 (17:59→18:04)
[2019-03-08] MEDS ORDERED: LACTATED RINGERS 1,000 ML IV SCH (18:00)
[2019-03-08] MEDS ORDERED: LACTATED RINGERS 1,000 ML IV STA (18:02)
--- NOTE | 2019-03-08 18:34 | ED Physician Documentation ---
ED Addendum - Addendum Addendum: This is a 23-year-old female signed out to me by Dr. Beaver. She has had some bleeding from the perineal wound, Dr. Byrne is currently suturing her, once she is done patient should be cleared for discharge. After Dr. Byrne treated the patient, I spoke with Dr. Byrne, who has discussed wound care and return precautions with the patient, she has follow up and pt is well appearing and ready for discharge. Departure - Departure Disposition: 01 Home, Self Care Clinical Impression: Vaginal bleeding Condition: Good Comments: Please follow-up in [address] Byrne. Perform the sitz bath as discussed. If you are having significant bleeding, passing out, signs of infection, or other concerning symptoms, return to the emergency department. Discharge Date/Time: 03/08/19 18:47
[2019-03-08 18:45] VITALS: BP 129/82
--- NOTE | 2019-03-08 18:48 | CONSULTATION NOTE ---
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 : reports: None HEENT: reports: None Psych: reports: Anxiety Musculoskeletal: reports: None Derm: reports: None MRSA Hx?: No - POLST Patient has POLST: No Meds/Allgy - Home Medications Home Medications: Ambulatory Orders Medication Instructions Recorded Confirmed Docusate Sodium 100 mg PO BID 03/08/19 03/08/19 Ferrous Sulfate 325 mg PO DAILY 03/08/19 03/08/19 Hydroxyzine Pamoate [Vistaril] 50 mg PO Q6HR PRN 03/08/19 03/08/19 Ibuprofen [Motrin] 600 mg PO Q6H PRN 03/08/19 03/08/19 - Allergies Allergies/Adverse Reactions: Allergies Allergy/AdvReac Type Severity Reaction Status Date / Time cefprozil [From Cefzil] Allergy Hives Verified 03/08/19 16:26 clarithromycin [From Biaxin] Allergy Hives Verified 03/08/19 16:26 veronica Allergy Rash Verified 03/08/19 16:26 neomycin Allergy Hives Verified 03/08/19 16:26 Exam - Vital Signs Vital Signs: Vital Signs x48h Temp Pulse Resp BP Pulse Ox 03/08/19 16:26 98.2 F 94 20 133/91 H 97 Conclusion/Plan - Diagnosis Diagnosis: Obstetric laceration disruption - Lab Results Fish Bones: 03/08/19 16:50 - Other Other Results/Comments: S: pt c/o disrupted OB laceration with more stinging and more bleeding. More painful than before it was disrupted. Husb looked and he saw the gap. Came to the hospital for eval. O: Alert, smiling, NAD EFG disrupted 3cm into the vagina and 2cm down towards the perineum. Perineal body intact. Suture material viewed. Pt received IV, fentanyl 100mcg IV, and 1% lidocane sub Q for premedication. Dissolved suture material wiped away with a 4x4, one knot was excised. Laceration closed with two interrupted sutures of 2-0 vicryl. The knots were not buried. A/P: disruption of obstetric laceration--not surprising considering her exten sive laceration at delivery. No evidence of infection, no necrosis, no other abnormality seen. Post procedure care reviewed. F/u in 3d with CNM appointment already scheduled.
== END 2019-03-08 18:47 | disposition home or self-care (01) ==
LOC: ED 16:24
DX: O90.1 Disruption of perineal obstetric wound (principal)
CPT/HCPCS: 36415; 85025; 96361; 96374; 99283; J7120